=== PATIENT | male | born 1970 | race Two or more races ===

== ENCOUNTER 2019-07-30 15:18 | Emergency (ER) | payer BC ==
[~2019-07-30] VITALS: Ht 177.8 cm; Wt 90.7 kg
[2019-07-30 15:25] VITALS: BP 141/79
--- NOTE | 2019-07-30 15:25 | NUR ---
ED Nurse Note: Pt brought in by ambulance c/o severe left sided abdominal pain 02/28. Pt is shaking and moaning with nausea and vomiting. Per pt, he had a kidney procedure today at [facility] and went home, then began having severe pain and called 911. Respirations even and labored on room air. Vitals stable as documented. Pt placed on monitor. IV inserted and blood drawn.
[2019-07-30] MEDS ORDERED: Omnipaque-300 100ml vial INJ PRN (15:30)
[2019-07-30] MEDS ORDERED: Morphine Sulfate 4mg/ml Inj (IV USE ONLY) IVP ONE (15:30)
[2019-07-30] MEDS ORDERED: Ketorolac 30mg Inj IV ONE (15:30)
--- NOTE | 2019-07-30 15:40 | NUR ---
ED Nurse Note: blood sent to lab
--- NOTE | 2019-07-30 15:52 | NUR ---
ED Nurse Note: made pt aware of need for urine sample. Urinal provided.
--- NOTE | 2019-07-30 15:54 | Emergency Room Report ---
History of Present Illness General Chief Complaint: General Complaint Source: Patient Present Illness HPI 48 yo male presents ED for abdominal pain, vomiting. Started today. Brought in by EMS from home. Status post ureteroscopy. States he has been having hematuria for the last several months. States procedure was done at [facility] today. States he was fine until he went home and that he started having pain. Left-sided, sharp, 9 out of 10. Feels chills. Afebrile. No other aggravating relieving factors. Denies any other associated symptoms Allergies: Coded Allergies: No Known Allergies (Unverified , 07/30/19) Patient History Past Medical History: none Past Surgical History: other - s/p ureteroscopy Pertinent Family History: none Social History: Denies: smoking, alcohol use, drug use Immunizations: UTD Reviewed Nursing Documentation: PMH: Agreed; PSxH: Agreed Nursing Documentation-PMH Past Medical History: No History, Except For Review of Systems All Other Systems: negative except mentioned in HPI Physical Exam Vital Signs Date Time Temp Pulse Resp B/P (MAP) Pulse Ox O2 Delivery O2 Flow Rate FiO2 07/30/19 15:13 97.5 68 22 134/74 (94) 94 Sp02 EP Interpretation: reviewed, normal General Appearance: no apparent distress, alert, GCS 15, non-toxic Head: normocephalic, atraumatic Eyes: bilateral eye normal inspection, bilateral eye PERRL ENT: hearing grossly normal, normal pharynx, no angioedema, normal voice Neck: full range of motion, supple/symm/no masses Respiratory: chest non-tender, lungs clear, normal breath sounds, speaking full sentences Cardiovascular #1: regular rate, rhythm, no edema Cardiovascular #2: 2+ carotid (R), 2+ carotid (L), 2+ radial (R), 2+ radial (L) , 2+ dorsalis pedis (R), 2+ dorsalis pedis (L) Gastrointestinal: normal bowel sounds, soft, guarding, tenderness - epigastric Rectal: deferred Genitourinary: normal inspection, no CVA tenderness Musculoskeletal: back normal, normal range of motion, gait/station normal, non- tender Neurologic: alert, motor strength/tone normal, oriented x3, sensory intact, responsive, speech normal Psychiatric: judgement/insight normal, memory normal, mood/affect normal, no suicidal/homicidal ideation Reflexes: 3+ bicep (R), 3+ bicep (L), 3+ tricep (R), 3+ tricep (L), 3+ knee (R) , 3+ knee (L) Skin: no rash Lymphatic: no adenopathy Medical Decision Making Diagnostic Impression: Primary Impression: Postoperative pain Additional Impression: Urinary tract infection Qualified Codes: N39.0 - Urinary tract infection, site not specified; R31.9 - Hematuria, unspecified ER Course Hospital Course 48-year-old M presents to ED with L flank pain. vomiting Differential diagnosis includes- peritonitis, kidney stone, perforation. Clinical course Patient placed on stretcher. After initial history and physical I ordered labs , IV fluids, pain medications and CT scan Labs - minimal leukocytosis, electrolytes ok, LFTs normal, UA - hematuria, + bacteria CT shows some air around the left kidney. No other acute process identified. No abscess or free air. Discussed findings with urologist Dr. Rahman at [facility]. Perform uteroscopy on patient today as patient has been having hematuria. States that he found AVM but no sign of tumor. He states that the CT findings are as expected. Assessment pain improved. Abdomen soft. No signs of peritoneal signs. Discussed findings with patient. Will discharge home with antibiotics. Pain meds. He will follow-up with urology. Urology stated that patient will also get referral to IR for treatment of AVM. I feel this is a highly complex case requiring extensive working including EKG/ Rhythm strip, Xray/CT/US, Blood/urine lab work, repeat exams while in ED, and administration of strong opiates/narcotics for pain control, admission to hospital or close patient follow up. Diagnosis - postoperative pain, UTI Stable and discharged to home with Rx Motrin, [place], Flomax, zofran, keflex, pyridium. Followup with urology/IR. Return to ED if symptoms recur or worsen Labs Test 07/30/19 15:40 07/30/19 16:50 White Blood Count 11.4 K/UL (4.8-10.8) Red Blood Count 3.74 M/UL (4.70-6.10) Hemoglobin 10.7 G/DL (14.2-18.0) Hematocrit 34.3 % (42.0-52.0) Mean Corpuscular Volume 92 FL (80-99) Mean Corpuscular Hemoglobin 28.6 PG (27.0-31.0) Mean Corpuscular Hemoglobin Concent 31.1 G/DL (32.0-36.0) Red Cell Distribution Width 14.5 % (11.6-14.8) Platelet Count 291 K/UL (150-450) Mean Platelet Volume 6.2 FL (6.5-10.1) Neutrophils (%) (Auto) % (45.0-75.0) Lymphocytes (%) (Auto) % (20.0-45.0) Monocytes (%) (Auto) % (1.0-10.0) Eosinophils (%) (Auto) % (0.0-3.0) Basophils (%) (Auto) % (0.0-2.0) Differential Total Cells Counted 100 Neutrophils % (Manual) 93 % (45-75) Lymphocytes % (Manual) 6 % (20-45) Monocytes % (Manual) 1 % (1-10) Eosinophils % (Manual) 0 % (0-3) Basophils % (Manual) 0 % (0-2) Band Neutrophils 0 % (0-8) Platelet Estimate Adequate Platelet Morphology Normal Hypochromasia 1+ Sodium Level 142 MMOL/L (136-145) Potassium Level 4.8 MMOL/L (3.5-5.1) Chloride Level 108 MMOL/L (98-107) Carbon Dioxide Level 23 MMOL/L (21-32) Anion Gap 11 mmol/L (5-15) Blood Urea Nitrogen 18 mg/dL (7-18) Creatinine 1.1 MG/DL (0.55-1.30) Estimat Glomerular Filtration Rate > 60 mL/min (>60) Glucose Level 148 MG/DL (74-106) Calcium Level 9.5 MG/DL (8.5-10.1) Total Bilirubin 0.3 MG/DL (0.2-1.0) Aspartate Amino Transf (AST/SGOT) 41 U/L (15-37) Alanine Aminotransferase (ALT/SGPT) 29 U/L (12-78) Alkaline Phosphatase 53 U/L (46-116) Total Protein 7.7 G/DL (6.4-8.2) Albumin 4.0 G/DL (3.4-5.0) Globulin 3.7 g/dL Albumin/Globulin Ratio 1.1 (1.0-2.7) Lipase 69 U/L (73-393) Urine Color [place]aryl Urine Appearance Cloudy Urine pH 6.5 (4.5-8.0) Urine Specific [place] 1.015 (1.005-1.035) Urine Protein 3+ (NEGATIVE) Urine Glucose (UA) Negative (NEGATIVE) Urine Ketones 2+ (NEGATIVE) Urine Blood 5+ (NEGATIVE) Urine Nitrite Positive (NEGATIVE) Urine Bilirubin 3+ (NEGATIVE) Urine Ictotest Negative (NEGATIVE) Urine Urobilinogen 8 MG/DL (0.0-1.0) Urine Leukocyte Esterase 2+ (NEGATIVE) Urine RBC Tntc /HPF (0 - 0) Urine WBC 5-10 /HPF (0 - 0) Urine Squamous Epithelial Cells Occasional /LPF Urine Amorphous Sediment Many /LPF (NONE) Urine Bacteria Many /HPF (NONE) CT/MRI/US Diagnostic Results CT/MRI/US Diagnostic Results : Imaging Test Ordered: CT A/P Impression Findings: Extraluminal gas is seen in the left retroperitoneum surrounding the kidney and renal hilar vessels. A small amount of gas is also dissected into the renal sinus. A small amount of gas is also seen adjacent to the proximal left ureter. Gas also dissects cephalad adjacent to the posterior medial spleen. The bladder is unremarkable, and no gas is seen within the bladder. No intraureteral luminal gas demonstrated. No significant perinephric or retroperitoneal fluid or inflammatory changes demonstrated. There is mild left hydronephrosis. The proximal ureter is slightly ectatic. The distal ureter is normal in caliber. Incidentally noted is a small cyst in the posterior interpolar region of the left kidney as well as an adjacent subcentimeter low-attenuation lesion which is too small to characterize. The renal parenchyma is otherwise unremarkable. The right kidney demonstrates at least 3 subcentimeter low-attenuation lesions which are too small to characterize. No renal or ureteral calculi. The liver is unremarkable. The gallbladder may demonstrate one or more tiny stones, although this is questionable. The bile ducts are unremarkable. The pancreas, spleen, adrenals are unremarkable. No retroperitoneal or mesenteric mass or adenopathy. No pelvic mass or adenopathy. The appendix is normal. No evidence of colonic diverticulosis or diverticulitis. There are a few mildly prominent fluid-filled small bowel loops in the pelvis. The distal esophagus, stomach, duodenum are unremarkable. No free intraperitoneal gas is demonstrated. No free intraperitoneal fluid. The included lung bases demonstrate posterior dependent atelectatic changes. The bones are unremarkable. Impression: Extraluminal gas within the left retroperitoneum, as described, predominantly surrounding the kidney but also adjacent to the spleen, within the renal sinus, and surrounding the proximal ureter and renal hilar vessels. Per discussion with referring physician, patient had ureteroscopy with air insufflation earlier today. Presence of extraluminal gas indicates presumed extravasation during that procedure. However, there is no extraluminal fluid to suggest abscess or urinoma, and there is no inflammatory change of the adjacent fat, indicating this is probably a self sealed perforation Mild left hydronephrosis, without evidence of downstream obstructive lesion, likely related to the above described procedure Questionable cholelithiasis Nonspecific mildly prominent fluid-filled small bowel loops in the pelvis. Of doubtful significance but could represent early enteritis changes Findings discussed by phone with Dr. Kaplan in the emergency room at the time of interpretation The CT scanner at [facility] is accredited by the [employer] and the scans are performed using protocols designed to limit radiation exposure to as low as reasonably achievable to attain images of sufficient resolution adequate for diagnostic evaluation. Last Vital Signs Date Time Temp Pulse Resp B/P (MAP) Pulse Ox O2 Delivery O2 Flow Rate FiO2 07/30/19 15:13 97.5 68 22 134/74 (94) 94 Status: improved Disposition: HOME, SELF-CARE Condition: Stable Scripts Tamsulosin HCl (Flomax) 0.4 Mg Cap.er.24h 0.4 MG ORAL DAILY, #10 CAP Prov: Edson Kaplan MD 07/30/19 Hydrocodone Bit/Acetaminophen 5-325* (NORCO 5-325 TABLET*) 1 Each Tablet 1 TAB ORAL Q6H PRN for FOR PAIN, #10 TAB 0 Refills Prov: Edson Kaplan MD 07/30/19 Ibuprofen* (MOTRIN*) 600 Mg Tablet 600 MG ORAL Q8H PRN for For Pain, #30 TAB 0 Refills Prov: Edson Kaplan MD 07/30/19 Phenazopyridine Hcl* (PYRIDIUM*) 100 Mg Tablet 100 MG ORAL THREE TIMES A DAY for 3 Days, TAB Prov: Edson Kaplan MD 07/30/19 Ondansetron Odt* (ZOFRAN ODT*) 4 Mg Tab.rapdis 4 MG BC EVERY 6 HOURS PRN for Nausea & Vomiting, #10 TAB 0 Refills Prov: Edson Kaplan MD 07/30/19 Cephalexin* (KEFLEX*) 500 Mg Capsule 500 MG ORAL EVERY 6 HOURS for 7 Days, CAP Prov: Edson Kaplan MD 07/30/19 Edson Kaplan MD Jul 30, 2019 15:54
[2019-07-30] MEDS ORDERED: Tamsulosin 0.4mg cap ORAL ONE (16:00)
[2019-07-30 16:01] LABS: HEMATOCRIT 34.3 % (42.0-52.0); HEMOGLOBIN 10.7 G/DL (14.2-18.0); MEAN CORPUSCULAR VOLUME 92 FL (80-99); PLATELET COUNT 291 K/UL (150-450); RED BLOOD COUNT 3.74 M/UL (4.70-6.10); RED CELL DISTRIBUTION WIDTH 14.5 % (11.6-14.8); WHITE BLOOD COUNT 11.4 K/UL (4.8-10.8)
[2019-07-30 16:14] LABS: ANION GAP 11 mmol/L (5-15); BLOOD UREA NITROGEN 18 mg/dL (7-18); CALCIUM 9.5 MG/DL (8.5-10.1); CARBON DIOXIDE 23 MMOL/L (21-32); CHLORIDE 108 MMOL/L (98-107); CREATININE 1.1 MG/DL (0.55-1.30); POTASSIUM 4.8 MMOL/L (3.5-5.1); SODIUM 142 MMOL/L (136-145)
[2019-07-30 16:18] LABS: ALANINE AMINOTRANSFERASE 29 U/L (12-78); ALBUMIN/GLOBULIN RATIO 1.1 (1.0-2.7); ALKALINE PHOSPHATASE 53 U/L (46-116); ASPARTATE AMINO TRANSFERASE 41 U/L (15-37); BILIRUBIN,TOTAL 0.3 MG/DL (0.2-1.0)
--- NOTE | 2019-07-30 16:40 | NUR ---
ED Nurse Note: pt in CT
--- NOTE | 2019-07-30 16:43 | NUR ---
ED Nurse Note: Pt back from CT
--- NOTE | 2019-07-30 16:58 | NUR ---
ED Nurse Note: urine sent to lab
[2019-07-30 17:16] LABS: APPEARANCE,URINE CLOUDY; BILIRUBIN, URINE 3+ (NEGATIVE); GLUCOSE, URINE (UA) NEGATIVE (NEGATIVE); KETONES,URINE 2+ (NEGATIVE); LEUKOCYTE ESTERASE ,URINE 2+ (NEGATIVE); NITRITE,URINE POSITIVE (NEGATIVE); PH,URINE 6.5 (4.5-8.0); PROTEIN,URINE 3+ (NEGATIVE); UROBILINOGEN,URINE 8 MG/DL (0.0-1.0)
--- NOTE | 2019-07-30 17:21 | Diagnostic Imaging Report ---
Clinical Indication: Left-sided abdominal pain status post cystoscopy Technique: No oral contrast utilized, per emergency room physician request IV administration nonionic contrast. Venous phase spiral acquisition obtained through the abdomen and pelvis. Multiplanar reconstructions were generated. Total dose length product 347 mGycm. CTDIvol(s) 6 mGy. Dose reduction achieved using automated exposure control Comparison: none Findings: Extraluminal gas is seen in the left retroperitoneum surrounding the kidney and renal hilar vessels. A small amount of gas is also dissected into the renal sinus. A small amount of gas is also seen adjacent to the proximal left ureter. Gas also dissects cephalad adjacent to the posterior medial spleen. The bladder is unremarkable, and no gas is seen within the bladder. No intraureteral luminal gas demonstrated. No significant perinephric or retroperitoneal fluid or inflammatory changes demonstrated. There is mild left hydronephrosis. The proximal ureter is slightly ectatic. The distal ureter is normal in caliber. Incidentally noted is a small cyst in the posterior interpolar region of the left kidney as well as an adjacent subcentimeter low-attenuation lesion which is too small to characterize. The renal parenchyma is otherwise unremarkable. The right kidney demonstrates at least 3 subcentimeter low-attenuation lesions which are too small to characterize. No renal or ureteral calculi. The liver is unremarkable. The gallbladder may demonstrate one or more tiny stones, although this is questionable. The bile ducts are unremarkable. The pancreas, spleen, adrenals are unremarkable. No retroperitoneal or mesenteric mass or adenopathy. No pelvic mass or adenopathy. The appendix is normal. No evidence of colonic diverticulosis or diverticulitis. There are a few mildly prominent fluid-filled small bowel loops in the pelvis. The distal esophagus, stomach, duodenum are unremarkable. No free intraperitoneal gas is demonstrated. No free intraperitoneal fluid. The included lung bases demonstrate posterior dependent atelectatic changes. The bones are unremarkable. Impression: Extraluminal gas within the left retroperitoneum, as described, predominantly surrounding the kidney but also adjacent to the spleen, within the renal sinus, and surrounding the proximal ureter and renal hilar vessels. Per discussion with referring physician, patient had ureteroscopy with air insufflation earlier today. Presence of extraluminal gas indicates presumed extravasation during that procedure. However, there is no extraluminal fluid to suggest abscess or urinoma, and there is no inflammatory change of the adjacent fat, indicating this is probably a self sealed perforation Mild left hydronephrosis, without evidence of downstream obstructive lesion, likely related to the above described procedure Questionable cholelithiasis Nonspecific mildly prominent fluid-filled small bowel loops in the pelvis. Of doubtful significance but could represent early enteritis changes Findings discussed by phone with Dr. Kaplan in the emergency room at the time of interpretation The CT scanner at [facility] is accredited by the [employer] and the scans are performed using protocols designed to limit radiation exposure to as low as reasonably achievable to attain images of sufficient resolution adequate for diagnostic evaluation.
[2019-07-30 17:28] LABS: COLOR,URINE AMBER
[2019-07-30] MEDS ORDERED: PHENAZOPYRIDIN100 MG ORAL ×2 (17:35→17:41)
[2019-07-30] MEDS ORDERED: FLOMAX0.4 MG ORAL (17:41)
[2019-07-30] MEDS ORDERED: IBUPROFEN600 MG ORAL (17:41)
[2019-07-30] MEDS ORDERED: ONDANSETRON ODT4 MG BC (17:41)
[2019-07-30] MEDS ORDERED: NORCO 5-325 TA1 EAC1 ORAL (17:41)
[2019-07-30] MEDS ORDERED: CEPHALEXIN500 MG ORAL (17:41)
[2019-07-30 18:35] VITALS: BP 139/74
--- NOTE | 2019-07-30 18:35 | NUR ---
ER DISCHARGE NOTE: Patient is cleared to be discharged per ERMD, pt is aox4, on room air, with stable vital signs. pt was given dc and prescription instructions, pt was able to verbalize understanding, pt id band and iv site removed without complications. pt is able to ambulate with steady gait. pt took all belongings.
== END 2019-07-30 18:35 | disposition home or self-care (01) ==
LOC: EDBD 15:18 → EMR 16:00
DX: G89.18 Other acute postprocedural pain (principal); N39.0 Urinary tract infection, site not specified; R31.9 Hematuria, unspecified; D72.829 Elevated white blood cell count, unspecified; N13.30 Unspecified hydronephrosis
CPT/HCPCS: 36415; 74177; 80053; 81003; 83690; 85007; 85025; 87086; 96361; 96374; 96375; 99284; J1885; J2270; J2405; J7030; Q9967; S0028